=== PATIENT | female | born 1935 | race Caucasian/White ===

== ENCOUNTER 2016-06-27 19:33 | Inpatient (IN) ==
[2016-06-27] MEDS ORDERED: 0.9 % SODIUM CHLORIDE 1,000 ML IV ONE (19:52)
--- NOTE | 2016-06-27 20:01 | Emergency Department Note ---
General Adult HPI - General Chief complaint: Weakness Stated complaint: Weakness Time Seen by Provider: 06/27/16 19:54 Source: patient, EMS Mode of arrival: other Limitations: language barrier - History of Present Illness HPI Narrative: This patient fell during the night when she goes to the bathroom and may return on the floor for 12 hours. EMS came out and she refused transport at that time. However caregivers came later and thought maybe she had a stroke some emesis that she come to the hospital. This time the patient appears neurologically normal. General she may feel little weak but doesn't have a lot of other specific symptoms. - Related Data Home Medications Medication Instructions Recorded Confirmed metFORMIN HCL [Glucophage] 1,000 mg PO WEEKLY 09/08/15 09/08/15 Previous Rx's Medication Instructions Recorded warfarin 3 mg tablet 3 mg PO QOD #15 tab 12/19/14 hydrocodone 7.5 mg-acetaminophen 1 tab PO Q4H PRN #120 tab 04/10/15 325 mg tablet diltiazem ER 120 mg 120 mg PO ONCE #90 cap 04/18/15 capsule,extended release 12 hr glipizide 5 mg tablet 5 mg PO QDAY #90 tab 04/18/15 metformin 1,000 mg tablet 1,000 mg PO BID #180 tab 04/18/15 simvastatin 20 mg tablet 20 mg PO QAM #90 tab 04/18/15 Azithromycin [Zithromax] 250 mg PO DAILY #4 tablet 06/27/16 Allergies Allergy/AdvReac Type Severity Reaction Status Date / Time No Known Drug Allergies Allergy Verified 09/08/15 16:54 Review of Systems Constitutional: Denies: fever, chills Eyes: Denies: eye pain ENT ED: Denies: ear pain Cardiovascular: Denies: chest pain Respiratory: Denies: cough Gastrointestinal: Denies: abdominal pain, nausea Genitourinary: Denies: urgency Musculoskeletal: Denies: back pain Integumentary: Denies: rash Neurological: Denies: headache Past Medical History - Past Medical History Medical history: Reports: arthritis, atrial fibrillation, CVA, diabetes, hyperlipidemia, hypertension, SVT Physical Exam - General Limitations: language barrier General appearance: alert - Head Head exam: atraumatic, normocephalic - Eye Eye exam: Present: normal appearance - ENT ENT exam: mucous membranes dry - Neck Neck exam: Present: normal inspection - Chest Chest inspection: Present: normal inspection - Respiratory Respiratory exam: Present: normal lung sounds bilaterally - Cardiovascular Cardiovascular exam: Present: regular rate, normal rhythm, normal heart sounds - Abdominal Exam Abdominal exam: Present: soft. Absent: distention, tenderness - Neurological Exam Neurological exam: Present: alert - Expanded Neurological Exam Cranial nerves: facial palsy (VII): Normal Motor strength - LUE: 5/5 Motor strength - RUE: 5/5 Motor strength - LLE: 5/5 Motor strength - RLE: 5/5 - Psychiatric Psychiatric exam: Present: normal affect - Skin Skin exam: Present: warm, dry Course Course Narrative: Patient was hydrated and drank liquid orally and felt reasonably well thought she could go home. We did give her oral Zithromax. Vital Signs Temperature 100.1 F H 06/27/16 19:33 Pulse Rate 94 H 06/27/16 19:33 Respiratory Rate 18 06/27/16 19:33 Blood Pressure 158/131 06/27/16 19:33 Pulse Oximetry (%) 93 06/27/16 19:33 Temperature 100.1 F H 06/27/16 19:33 Pulse Rate 96 H 06/27/16 22:08 Respiratory Rate 18 06/27/16 19:33 Blood Pressure 170/82 06/27/16 22:08 Pulse Oximetry (%) 95 06/27/16 22:08 Medical Decision Making - Lab Data Lab results reviewed: Yes I reviewed the patient's lab results. Result diagrams: 06/27/16 19:58 06/27/16 19:58 Lab Results 06/27/16 06/27/16 06/27/16 Range/Units 19:55 19:55 19:58 WBC 14.4 H (4.5-11.0) K/mcL RBC 5.47 H (4.00-5.20) M/mcL Hgb 15.9 H (12.0-15.0) g/dL Hct 49.2 H (36.0-48.0) % MCV 89.9 (80.0-100.0) fL MCH 29.0 (26.0-34.0) pg MCHC 32.3 (31.0-36.0) g/dL RDW 14.9 H (11.5-14.5) % Plt Count 259 (140-440) K/mcL MPV 8.8 (7.4-10.4) fL Gran % 85.5 H (38.0-78.0) % Lymph % (Auto) 8.4 L (15.5-49.0) % [place] % (Auto) 5.9 (1.0-9.0) % Eos % (Auto) 0 (0.0-7.0) % Baso % (Auto) 0.2 (0.0-2.0) % Gran # 12.3 H (1.8-8.0) K/mcL Lymph # 1.2 L (1.5-4.8) K/mcL [place] # 0.9 (0.1-0.9) K/mcL Eos # 0 (0.0-0.7) K/mcL Baso # 0 (0.0-0.3) K/mcL Sodium (133-145) mmol/L Potassium (3.3-5.1) mmol/L Chloride (96-108) mmol/L Carbon Dioxide (22-30) mmol/L Anion Gap (8-16) BUN (8-23) mg/dl Creatinine (0.6-1.1) mg/dl GFR Calculation Glucose (70-105) mg/dL Calcium (8.6-10.4) mg/dl Total Bilirubin (0.0-1.0) mg/dL AST (0-37) U/l ALT (0-40) U/l Alkaline Phosphatase (39-117) U/L Total Creatine Kinase 2944 H (24-170) IU/L Troponin T 0.03 (0-0.03) ng/ml Total Protein (5.9-8.4) gm/dL Albumin (3.2-5.2) gm/dL Globulin (2.2-3.7) gm/dL Albumin/Globulin Ratio (1.0-2.3) Urine Color Urine Appearance Urine pH (5.0-9.0) Ur Specific [place] (1.000-1.035) Urine Protein (NEG) mg/dL Urine Glucose (UA) (NEG) mg/dL Urine Ketones (NEG) mg/dL Urine Occult Blood (<0.03) mg/dL Urine Nitrate (NEG) Urine Bilirubin (NEG) mg/dL Urine Urobilinogen (NEG) mg/dL Ur Leukocyte Esterase (NEG) /uL Urine RBC (0-1) /hpf Urine WBC (0-4) /hpf Ur Squamous Epith Cells (0-4) /hpf Ur Transition Epith Cell (0-2) /hpf Urine Bacteria (0) /hpf Hyaline Casts (0-2) /lpf Urine Mucus (0) /hpf Ur Culture Indicated? 06/27/16 06/27/16 Range/Units 19:58 21:38 WBC (4.5-11.0) K/mcL RBC (4.00-5.20) M/mcL Hgb (12.0-15.0) g/dL Hct (36.0-48.0) % MCV (80.0-100.0) fL MCH (26.0-34.0) pg MCHC (31.0-36.0) g/dL RDW (11.5-14.5) % Plt Count (140-440) K/mcL MPV (7.4-10.4) fL Gran % (38.0-78.0) % Lymph % (Auto) (15.5-49.0) % [place] % (Auto) (1.0-9.0) % Eos % (Auto) (0.0-7.0) % Baso % (Auto) (0.0-2.0) % Gran # (1.8-8.0) K/mcL Lymph # (1.5-4.8) K/mcL [place] # (0.1-0.9) K/mcL Eos # (0.0-0.7) K/mcL Baso # (0.0-0.3) K/mcL Sodium 140 (133-145) mmol/L Potassium 3.8 (3.3-5.1) mmol/L Chloride 100 (96-108) mmol/L Carbon Dioxide 21 L (22-30) mmol/L Anion Gap 19.0 H (8-16) BUN 24 H (8-23) mg/dl Creatinine 1.3 H (0.6-1.1) mg/dl GFR Calculation 38 Glucose 186 H (70-105) mg/dL Calcium 9.3 (8.6-10.4) mg/dl Total Bilirubin 0.5 (0.0-1.0) mg/dL AST 67 H (0-37) U/l ALT 30 (0-40) U/l Alkaline Phosphatase 101 (39-117) U/L Total Creatine Kinase (24-170) IU/L Troponin T (0-0.03) ng/ml Total Protein 7.2 (5.9-8.4) gm/dL Albumin 3.9 (3.2-5.2) gm/dL Globulin 3.3 (2.2-3.7) gm/dL Albumin/Globulin Ratio 1.2 (1.0-2.3) Urine Color Yellow Urine Appearance Hazy Urine pH 5.0 (5.0-9.0) Ur Specific [place] 1.018 (1.000-1.035) Urine Protein 100 A (NEG) mg/dL Urine Glucose (UA) >=500 A (NEG) mg/dL Urine Ketones 5/tr A (NEG) mg/dL Urine Occult Blood 0.2 A (<0.03) mg/dL Urine Nitrate Neg (NEG) Urine Bilirubin Neg (NEG) mg/dL Urine Urobilinogen Neg (NEG) mg/dL Ur Leukocyte Esterase Neg (NEG) /uL Urine RBC 1 (0-1) /hpf Urine WBC 1 (0-4) /hpf Ur Squamous Epith Cells 0 (0-4) /hpf Ur Transition Epith Cell < 1 (0-2) /hpf Urine Bacteria 0 (0) /hpf Hyaline Casts 1 (0-2) /lpf Urine Mucus Few (0) /hpf Ur Culture Indicated? No - Radiology Data Radiology results reviewed: Yes I reviewed the patient's radiology results. ( chest x-ray was borderline for any infiltrates. CT scan showed no sign of acute stroke.) Disposition Clinical Impression: Dehydration, Bronchitis Disposition: Home, Self-Care Condition: Good Instructions: Acute Bronchitis (ED), Dehydration (ED) Prescriptions: Azithromycin [Zithromax] 250 mg PO DAILY #4 tablet Referrals: Nelson Coyle PA-C [Primary Care Provider] - Time of Disposition: 22:46
[2016-06-27 20:34] LABS: Basophils # (Auto) 0 K/mcL (0.0-0.3); Basophils % (Auto) 0.2 % (0.0-2.0); Eosinophils # (Auto) 0 K/mcL (0.0-0.7); Eosinophils % (Auto) 0 % (0.0-7.0); Granulocytes % (Auto) 85.5 % (38.0-78.0); Lymphocytes # (Auto) 1.2 K/mcL (1.5-4.8); Lymphocytes % (Auto) 8.4 % (15.5-49.0); Mean Cell Volume 89.9 fL (80.0-100.0); Mean Corpuscular HGB Conc 32.3 g/dL (31.0-36.0); Monocytes # (Auto) 0.9 K/mcL (0.1-0.9); Monocytes % (Auto) 5.9 % (1.0-9.0); Platelet Count 259 K/mcL (140-440); RBC 5.47 M/mcL (4.00-5.20); Red Cell Distribution Width 14.9 % (11.5-14.5)
[2016-06-27 20:54] LABS: ALT/SGPT 30 U/l (0-40); Albumin 3.9 gm/dL (3.2-5.2); Albumin/Globulin Ratio 1.2 (1.0-2.3); Alkaline Phosphatase 101 U/L (39-117); Blood Urea Nitrogen 24 mg/dl (8-23)
[2016-06-27 22:10] LABS: Appearance,Urine HAZY; Bacteria,Urine 0 /hpf (0); Bilirubin,Urine NEG (NEG); Color,Urine YELLOW; Glucose,Urine (UA) >=500 mg/dL (NEG); Leukocyte Esterase,Urine NEG /uL (NEG); Mucus,Urine FEW /hpf (0); Nitrate,Urine NEG (NEG); Protein,Urine 100 mg/dL (NEG); Specific Gravity,Urine 1.018 (1.000-1.035); Urine Blood 0.2 mg/dL (<0.03); Urine Hyaline Cast 1 /lpf (0-2); Urine RBC 1 /hpf (0-1); Urine Squamous Epithelial Cell 0 /hpf (0-4); Urine Transitional Epi Cells < 1 /hpf (0-2); Urine WBC 1 /hpf (0-4); Urobilinogen,Urine NEG (NEG)
[2016-06-27] MEDS ORDERED: AZITHROMYCIN 250 MG TABLET PO ONE (22:43)
[2016-06-28] MEDS ORDERED: 0.9 % SODIUM CHLORIDE 1,000 ML IV ONE (09:02)
--- NOTE | 2016-06-28 09:21 | Emergency Department Note ---
General Adult HPI - General Chief complaint: Weakness Stated complaint: Weakness Time Seen by Provider: 06/27/16 19:54 Source: patient, EMS Mode of arrival: other Limitations: language barrier - Related Data Home Medications Medication Instructions Recorded Confirmed metFORMIN HCL [Glucophage] 1,000 mg PO WEEKLY 09/08/15 09/08/15 Previous Rx's Medication Instructions Recorded warfarin 3 mg tablet 3 mg PO QOD #15 tab 12/19/14 hydrocodone 7.5 mg-acetaminophen 1 tab PO Q4H PRN #120 tab 04/10/15 325 mg tablet diltiazem ER 120 mg 120 mg PO ONCE #90 cap 04/18/15 capsule,extended release 12 hr glipizide 5 mg tablet 5 mg PO QDAY #90 tab 04/18/15 metformin 1,000 mg tablet 1,000 mg PO BID #180 tab 04/18/15 simvastatin 20 mg tablet 20 mg PO QAM #90 tab 04/18/15 Azithromycin [Zithromax] 250 mg PO DAILY #4 tablet 06/27/16 Allergies Allergy/AdvReac Type Severity Reaction Status Date / Time No Known Drug Allergies Allergy Verified 09/08/15 16:54 Review of Systems Constitutional: Denies: fever, chills Eyes: Denies: eye pain ENT ED: Denies: ear pain Cardiovascular: Denies: chest pain Respiratory: Denies: cough Gastrointestinal: Denies: abdominal pain, nausea Genitourinary: Denies: urgency Musculoskeletal: Denies: back pain Integumentary: Denies: rash Neurological: Denies: headache Past Medical History - Past Medical History Medical history: Reports: arthritis, atrial fibrillation, CVA, diabetes, hyperlipidemia, hypertension, SVT Physical Exam - General Limitations: language barrier General appearance: alert Course Vital Signs Temperature 100.1 F H 06/27/16 19:33 Pulse Rate 94 H 06/27/16 19:33 Respiratory Rate 18 06/27/16 19:33 Blood Pressure 158/131 06/27/16 19:33 Pulse Oximetry (%) 93 06/27/16 19:33 Temperature 98.6 F 06/28/16 08:49 Pulse Rate 81 06/28/16 08:16 Respiratory Rate 16 06/28/16 08:16 Blood Pressure 156/78 06/28/16 08:16 Pulse Oximetry (%) 93 06/28/16 08:16 Medical Decision Making - MDM Narrative Medical decision making narrative: It was felt a discharge that this patient is probably unsafe to go home. She fell several times yesterday and her CPK was quite high in the 2000 range. We' re going to continue to hydrate her recheck her labs and have social service to evaluation. - Lab Data Result diagrams: 06/27/16 19:58 06/27/16 19:58 Lab Results 06/27/16 06/27/16 06/27/16 Range/Units 19:55 19:55 19:58 WBC 14.4 H (4.5-11.0) K/mcL RBC 5.47 H (4.00-5.20) M/mcL Hgb 15.9 H (12.0-15.0) g/dL Hct 49.2 H (36.0-48.0) % MCV 89.9 (80.0-100.0) fL MCH 29.0 (26.0-34.0) pg MCHC 32.3 (31.0-36.0) g/dL RDW 14.9 H (11.5-14.5) % Plt Count 259 (140-440) K/mcL MPV 8.8 (7.4-10.4) fL Gran % 85.5 H (38.0-78.0) % Lymph % (Auto) 8.4 L (15.5-49.0) % [place] % (Auto) 5.9 (1.0-9.0) % Eos % (Auto) 0 (0.0-7.0) % Baso % (Auto) 0.2 (0.0-2.0) % Gran # 12.3 H (1.8-8.0) K/mcL Lymph # 1.2 L (1.5-4.8) K/mcL [place] # 0.9 (0.1-0.9) K/mcL Eos # 0 (0.0-0.7) K/mcL Baso # 0 (0.0-0.3) K/mcL Sodium (133-145) mmol/L Potassium (3.3-5.1) mmol/L Chloride (96-108) mmol/L Carbon Dioxide (22-30) mmol/L Anion Gap (8-16) BUN (8-23) mg/dl Creatinine (0.6-1.1) mg/dl GFR Calculation Glucose (70-105) mg/dL Calcium (8.6-10.4) mg/dl Total Bilirubin (0.0-1.0) mg/dL AST (0-37) U/l ALT (0-40) U/l Alkaline Phosphatase (39-117) U/L Total Creatine Kinase 2944 H (24-170) IU/L Troponin T 0.03 (0-0.03) ng/ml Total Protein (5.9-8.4) gm/dL Albumin (3.2-5.2) gm/dL Globulin (2.2-3.7) gm/dL Albumin/Globulin Ratio (1.0-2.3) Urine Color Urine Appearance Urine pH (5.0-9.0) Ur Specific [place] (1.000-1.035) Urine Protein (NEG) mg/dL Urine Glucose (UA) (NEG) mg/dL Urine Ketones (NEG) mg/dL Urine Occult Blood (<0.03) mg/dL Urine Nitrate (NEG) Urine Bilirubin (NEG) mg/dL Urine Urobilinogen (NEG) mg/dL Ur Leukocyte Esterase (NEG) /uL Urine RBC (0-1) /hpf Urine WBC (0-4) /hpf Ur Squamous Epith Cells (0-4) /hpf Ur Transition Epith Cell (0-2) /hpf Urine Bacteria (0) /hpf Hyaline Casts (0-2) /lpf Urine Mucus (0) /hpf Ur Culture Indicated? 06/27/16 06/27/16 Range/Units 19:58 21:38 WBC (4.5-11.0) K/mcL RBC (4.00-5.20) M/mcL Hgb (12.0-15.0) g/dL Hct (36.0-48.0) % MCV (80.0-100.0) fL MCH (26.0-34.0) pg MCHC (31.0-36.0) g/dL RDW (11.5-14.5) % Plt Count (140-440) K/mcL MPV (7.4-10.4) fL Gran % (38.0-78.0) % Lymph % (Auto) (15.5-49.0) % [place] % (Auto) (1.0-9.0) % Eos % (Auto) (0.0-7.0) % Baso % (Auto) (0.0-2.0) % Gran # (1.8-8.0) K/mcL Lymph # (1.5-4.8) K/mcL [place] # (0.1-0.9) K/mcL Eos # (0.0-0.7) K/mcL Baso # (0.0-0.3) K/mcL Sodium 140 (133-145) mmol/L Potassium 3.8 (3.3-5.1) mmol/L Chloride 100 (96-108) mmol/L Carbon Dioxide 21 L (22-30) mmol/L Anion Gap 19.0 H (8-16) BUN 24 H (8-23) mg/dl Creatinine 1.3 H (0.6-1.1) mg/dl GFR Calculation 38 Glucose 186 H (70-105) mg/dL Calcium 9.3 (8.6-10.4) mg/dl Total Bilirubin 0.5 (0.0-1.0) mg/dL AST 67 H (0-37) U/l ALT 30 (0-40) U/l Alkaline Phosphatase 101 (39-117) U/L Total Creatine Kinase (24-170) IU/L Troponin T (0-0.03) ng/ml Total Protein 7.2 (5.9-8.4) gm/dL Albumin 3.9 (3.2-5.2) gm/dL Globulin 3.3 (2.2-3.7) gm/dL Albumin/Globulin Ratio 1.2 (1.0-2.3) Urine Color Yellow Urine Appearance Hazy Urine pH 5.0 (5.0-9.0) Ur Specific [place] 1.018 (1.000-1.035) Urine Protein 100 A (NEG) mg/dL Urine Glucose (UA) >=500 A (NEG) mg/dL Urine Ketones 5/tr A (NEG) mg/dL Urine Occult Blood 0.2 A (<0.03) mg/dL Urine Nitrate Neg (NEG) Urine Bilirubin Neg (NEG) mg/dL Urine Urobilinogen Neg (NEG) mg/dL Ur Leukocyte Esterase Neg (NEG) /uL Urine RBC 1 (0-1) /hpf Urine WBC 1 (0-4) /hpf Ur Squamous Epith Cells 0 (0-4) /hpf Ur Transition Epith Cell < 1 (0-2) /hpf Urine Bacteria 0 (0) /hpf Hyaline Casts 1 (0-2) /lpf Urine Mucus Few (0) /hpf Ur Culture Indicated? No Disposition Clinical Impression: Dehydration, Bronchitis Disposition: Home, Self-Care Condition: Good Instructions: Dehydration (ED), Acute Bronchitis (ED) Prescriptions: Azithromycin [Zithromax] 250 mg PO DAILY #4 tablet Referrals: Nelson Coyle PA-C [Primary Care Provider] -
--- NOTE | 2016-06-28 09:47 | XRay Report ---
CLINICAL INFORMATION: History of chronic bronchitis. Shortness of breath COMPARISON: 05/24/2015 plain films FINDINGS: Mild cardiomegaly is unchanged. Mediastinum and pulmonary vessels are normal. Chronic bronchitis changes are again noted. There is minor scarring in the left base - there are no new pulmonary abnormalities and no effusions. Mild old compression fractures the mid and lower thoracic spine are stable. IMPRESSION: Mild cardiomegaly, chronic bronchitis changes and scarring the left base - all stable . No acute disease Interpreted and Authenticated by: Zev Joy 06/28/16
--- NOTE | 2016-06-28 09:58 | Emergency Department Note ---
Weakness HPI - General Chief complaint: Weakness Stated complaint: Weakness Time Seen by Provider: 06/27/16 19:54 Source: patient, EMS Mode of arrival: other Limitations: language barrier - Related Data Home Medications Medication Instructions Recorded Confirmed metFORMIN HCL [Glucophage] 1,000 mg PO WEEKLY 09/08/15 09/08/15 Previous Rx's Medication Instructions Recorded warfarin 3 mg tablet 3 mg PO QOD #15 tab 12/19/14 hydrocodone 7.5 mg-acetaminophen 1 tab PO Q4H PRN #120 tab 04/10/15 325 mg tablet diltiazem ER 120 mg 120 mg PO ONCE #90 cap 04/18/15 capsule,extended release 12 hr glipizide 5 mg tablet 5 mg PO QDAY #90 tab 04/18/15 metformin 1,000 mg tablet 1,000 mg PO BID #180 tab 04/18/15 simvastatin 20 mg tablet 20 mg PO QAM #90 tab 04/18/15 Azithromycin [Zithromax] 250 mg PO DAILY #4 tablet 06/27/16 Allergies Allergy/AdvReac Type Severity Reaction Status Date / Time No Known Drug Allergies Allergy Verified 09/08/15 16:54 Review of Systems Constitutional: Denies: fever, chills Eyes: Denies: eye pain ENT ED: Denies: ear pain Cardiovascular: Denies: chest pain Respiratory: Denies: cough Gastrointestinal: Denies: abdominal pain, nausea Genitourinary: Denies: urgency Musculoskeletal: Denies: back pain Integumentary: Denies: rash Neurological: Denies: headache Past Medical History - Past Medical History Medical history: Reports: arthritis, atrial fibrillation, CVA, diabetes, hyperlipidemia, hypertension, SVT Physical Exam - General Limitations: language barrier General appearance: alert Course Vital Signs Temperature 100.1 F H 06/27/16 19:33 Pulse Rate 94 H 06/27/16 19:33 Respiratory Rate 18 06/27/16 19:33 Blood Pressure 158/131 06/27/16 19:33 Pulse Oximetry (%) 93 06/27/16 19:33 Temperature 98.6 F 06/28/16 08:49 Pulse Rate 88 06/28/16 09:43 Respiratory Rate 16 06/28/16 09:43 Blood Pressure 155/69 06/28/16 09:43 Pulse Oximetry (%) 93 06/28/16 09:43 Weakness - MDM Narrative Medical decision making narrative: Laboratory studies reviewed, discussed with Dr. lang and for further history, please see documentation by Dr. lang. Final diagnosis is #1. Dehydration. # 2. Cellulitis, right arm. #3. Impending rhabdo. #4. Generalized weakness, unable to stand without assistance. Likely secondary to dehydration and infection. Discussed with Dr. Campbell and she will be admitted for further hydration and treatment. - Lab Data Result diagrams: 06/27/16 19:58 06/27/16 19:58 Lab Results 06/27/16 06/27/16 06/27/16 Range/Units 19:55 19:55 19:58 WBC 14.4 H (4.5-11.0) K/mcL RBC 5.47 H (4.00-5.20) M/mcL Hgb 15.9 H (12.0-15.0) g/dL Hct 49.2 H (36.0-48.0) % MCV 89.9 (80.0-100.0) fL MCH 29.0 (26.0-34.0) pg MCHC 32.3 (31.0-36.0) g/dL RDW 14.9 H (11.5-14.5) % Plt Count 259 (140-440) K/mcL MPV 8.8 (7.4-10.4) fL Gran % 85.5 H (38.0-78.0) % Lymph % (Auto) 8.4 L (15.5-49.0) % [place] % (Auto) 5.9 (1.0-9.0) % Eos % (Auto) 0 (0.0-7.0) % Baso % (Auto) 0.2 (0.0-2.0) % Gran # 12.3 H (1.8-8.0) K/mcL Lymph # 1.2 L (1.5-4.8) K/mcL [place] # 0.9 (0.1-0.9) K/mcL Eos # 0 (0.0-0.7) K/mcL Baso # 0 (0.0-0.3) K/mcL Sodium (133-145) mmol/L Potassium (3.3-5.1) mmol/L Chloride (96-108) mmol/L Carbon Dioxide (22-30) mmol/L Anion Gap (8-16) BUN (8-23) mg/dl Creatinine (0.6-1.1) mg/dl GFR Calculation Glucose (70-105) mg/dL Calcium (8.6-10.4) mg/dl Total Bilirubin (0.0-1.0) mg/dL AST (0-37) U/l ALT (0-40) U/l Alkaline Phosphatase (39-117) U/L Total Creatine Kinase 2944 H (24-170) IU/L Troponin T 0.03 (0-0.03) ng/ml Total Protein (5.9-8.4) gm/dL Albumin (3.2-5.2) gm/dL Globulin (2.2-3.7) gm/dL Albumin/Globulin Ratio (1.0-2.3) Urine Color Urine Appearance Urine pH (5.0-9.0) Ur Specific [place] (1.000-1.035) Urine Protein (NEG) mg/dL Urine Glucose (UA) (NEG) mg/dL Urine Ketones (NEG) mg/dL Urine Occult Blood (<0.03) mg/dL Urine Nitrate (NEG) Urine Bilirubin (NEG) mg/dL Urine Urobilinogen (NEG) mg/dL Ur Leukocyte Esterase (NEG) /uL Urine RBC (0-1) /hpf Urine WBC (0-4) /hpf Ur Squamous Epith Cells (0-4) /hpf Ur Transition Epith Cell (0-2) /hpf Urine Bacteria (0) /hpf Hyaline Casts (0-2) /lpf Urine Mucus (0) /hpf Ur Culture Indicated? 06/27/16 06/27/16 Range/Units 19:58 21:38 WBC (4.5-11.0) K/mcL RBC (4.00-5.20) M/mcL Hgb (12.0-15.0) g/dL Hct (36.0-48.0) % MCV (80.0-100.0) fL MCH (26.0-34.0) pg MCHC (31.0-36.0) g/dL RDW (11.5-14.5) % Plt Count (140-440) K/mcL MPV (7.4-10.4) fL Gran % (38.0-78.0) % Lymph % (Auto) (15.5-49.0) % [place] % (Auto) (1.0-9.0) % Eos % (Auto) (0.0-7.0) % Baso % (Auto) (0.0-2.0) % Gran # (1.8-8.0) K/mcL Lymph # (1.5-4.8) K/mcL [place] # (0.1-0.9) K/mcL Eos # (0.0-0.7) K/mcL Baso # (0.0-0.3) K/mcL Sodium 140 (133-145) mmol/L Potassium 3.8 (3.3-5.1) mmol/L Chloride 100 (96-108) mmol/L Carbon Dioxide 21 L (22-30) mmol/L Anion Gap 19.0 H (8-16) BUN 24 H (8-23) mg/dl Creatinine 1.3 H (0.6-1.1) mg/dl GFR Calculation 38 Glucose 186 H (70-105) mg/dL Calcium 9.3 (8.6-10.4) mg/dl Total Bilirubin 0.5 (0.0-1.0) mg/dL AST 67 H (0-37) U/l ALT 30 (0-40) U/l Alkaline Phosphatase 101 (39-117) U/L Total Creatine Kinase (24-170) IU/L Troponin T (0-0.03) ng/ml Total Protein 7.2 (5.9-8.4) gm/dL Albumin 3.9 (3.2-5.2) gm/dL Globulin 3.3 (2.2-3.7) gm/dL Albumin/Globulin Ratio 1.2 (1.0-2.3) Urine Color Yellow Urine Appearance Hazy Urine pH 5.0 (5.0-9.0) Ur Specific [place] 1.018 (1.000-1.035) Urine Protein 100 A (NEG) mg/dL Urine Glucose (UA) >=500 A (NEG) mg/dL Urine Ketones 5/tr A (NEG) mg/dL Urine Occult Blood 0.2 A (<0.03) mg/dL Urine Nitrate Neg (NEG) Urine Bilirubin Neg (NEG) mg/dL Urine Urobilinogen Neg (NEG) mg/dL Ur Leukocyte Esterase Neg (NEG) /uL Urine RBC 1 (0-1) /hpf Urine WBC 1 (0-4) /hpf Ur Squamous Epith Cells 0 (0-4) /hpf Ur Transition Epith Cell < 1 (0-2) /hpf Urine Bacteria 0 (0) /hpf Hyaline Casts 1 (0-2) /lpf Urine Mucus Few (0) /hpf Ur Culture Indicated? No Disposition Clinical Impression: Dehydration, Bronchitis, Rhabdomyolysis Disposition: Xfer As Inpt ([facility]) Condition: Good Instructions: Dehydration (ED), Acute Bronchitis (ED) Prescriptions: Azithromycin [Zithromax] 250 mg PO DAILY #4 tablet Referrals: Nelson Coyle PA-C [Primary Care Provider] -
[2016-06-28 10:21] LABS: ALT/SGPT 26 U/l (0-40); Albumin 3.3 gm/dL (3.2-5.2); Albumin/Globulin Ratio 1.3 (1.0-2.3); Alkaline Phosphatase 79 U/L (39-117); Blood Urea Nitrogen 19 mg/dl (8-23); Creatine Kinase 1914 IU/L (24-170); Creatine Kinase MB 14.6 ng/ml (0-2.9); proBNP 832.4 pg/ml (0-450)
--- NOTE | 2016-06-28 10:28 | Cat Scan Report ---
CLINICAL INFORMATION: TIA symptoms with extremity weakness. Also history of trauma COMPARISON: 03/11/[address] without contrast. TECHNIQUE: 2.5 mm helical slices were obtained in the skull base to vertex. Following reconstruction, axial reformatted images were reviewed at bone and parenchymal windows. FINDINGS: The ventricles, sulci, fissures, and cisterns are symmetrically enlarged compatible with moderate atrophy resting considerably from the remote study. There is no subdural hemorrhage or other extra-axial fluid collection. A 9 mm dense calcification along the posterior falx is unchanged from the remote study. It may represent a small benign meningioma - this should be clinically inconsequential in this patient. Marked chronic ischemic changes in the deep cerebral white matter have progressed from the previous study. A 10 mm remote lacunar infarct in the right thalamus and internal capsule is again noted. There is a 3 cm remote infarct in the right cerebellum extending into the right inferior cerebellar peduncle - not seen on the previous study. A few remote punctate lacunar infarcts in basal ganglia are unchanged. There is no intracerebral hemorrhage, mass effect edema or other acute finding. Small scalp hematoma over the right parietal calvaria noted - no underlying fracture. The bone windows show no osseous abnormality IMPRESSION: 1. No intracerebral hemorrhage or other acute finding 2. Moderate atrophy and extensive chronic ischemic changes in the cerebral white matter which have progressed considerably over the past 12 years 3. 3 cm remote infarct in the inferior right cerebellum, 10 mm remote infarct in the right thalamus and scattered punctate remote lacunar infarcts in the basal ganglia Interpreted and Authenticated by: Zev Joy 06/28/16
--- NOTE | 2016-06-28 12:20 | Internal Med History&Physical ---
Medical - H&P: HPI Patient information: Note initiated : 06/28/16 at 12:15 pm Service Date, if different from initiated Date: [] Patient: Iris Singh a 81 y/o F admitted on for Weakness. 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 There is history suggestive of having weakness and stroke like symptoms, but the pateint is not sure. On my eval the patient notes she is back to her baseline mental status. I am not sure what her baseline is therfore cannot acertain if she had a CVA or TIA. The patient noted that she did not feel like coming in to the hospital and therefor she declined the first time. Later on she fell down and hit her knees, elbows and her intensive care unit nurse called EMS and she ended up in the ER. It seems she was out of the window for any intervention. The patients labs show elevated wbc, elevated CK, ER physician notes right arm cellutlitis, and the patient was admitted to the hospital for further management. 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 no acute infarcts, but its likely that she may have had a TIA like episode. CXR is negative for acute process. patient admits to pain in the right elbow. - Constitutional Constitutional: Present: fatigue, frequent falls, weakness. Absent: fever(s), headache(s) - EENT Eyes: Absent: blurry vision, change in vision Nose, mouth and throat: Absent: abnormal hearing, dysphagia - Cardiovascular Cardiovascular: Present: pedal edema. Absent: chest pain, chest pain at rest, palpatations - Respiratory Respiratory: Absent: dyspnea, dyspnea on exertion - Gastrointestinal Gastrointestinal: Absent: abdominal pain, nausea, vomiting - Genitourinary Genitourinary: Absent: hematuria, urinary frequency, urinary hesitancy - Musculoskeletal Musculoskeletal: Present: arthralgias, back pain - Integumentary Integumentary: Present: skin ulcer, wounds - Neurological Neurological: Absent: syncope, vertigo, weakness - Psychiatric Psychiatric: Present: confusion. Absent: anxiety - Endocrine Endocrine: Absent: polydipsia, polyphagia, polyuria - Allergic/Immunologic Allergic/Immunologic: Absent: uticaria, wheezing Medical - H&P: PMH Medical history: PMH DM, HTN, HLD< CVA on coumadin, h/o SVT Surgical history: No major surgical issue Family history: reviewed and not pertinent Social history: Lkives by self recently non smoker no etoh no recreational drugs. Medical - H&P: Meds Home Medications Medication Instructions Recorded Confirmed Type metFORMIN HCL [Glucophage] 1,000 mg PO WEEKLY 09/08/15 09/08/15 History Allergies Allergy/AdvReac Type Severity Reaction Status Date / Time No Known Drug Allergies Allergy Verified 09/08/15 16:54 Medical - H&P: Exam - Constitutional Vitals: Temp Pulse Resp BP Pulse Ox 98.6 F 95 H 16 159/63 93 06/28/16 08:49 06/28/16 10:59 06/28/16 10:59 06/28/16 10:59 06/28/16 10:59 General appearance: cooperative, no acute distress - Head Head exam: Present: atraumatic, normal inspection - Eye Eye exam: Present: conjunctival injection, PERRL. Absent: periorbital swelling , periorbital tenderness, scleral icterus - ENT ENT exam: Present: mucous membranes moist Additional comments: poor dentition tongue midline uvula midline gag reflex present. - Neck Neck exam: Present: normal inspection - Respiratory Respiratory exam: Present: normal respiratory exam. Absent: accessory muscle use, rhonchi, wheezes - Cardiovascular Cardiovascular exam: Present: normal rate and rhythm, +S1, +S2, systolic murmur (5/6 aortic murmur) - GI/Abdominal GI/Abdominal exam: Present: normal bowel sounds, soft. Absent: rigid, tenderness - Extremities Exam Additional comments: Left upper extremity: nectoric eschar based ulcer 3x3 cms, with surrounding erythema, decub ulcer. Right upper extremity: abrasin on the elbow, eythema, exending to mid forearm, on the lateral aspect, also involves the lower 1/3 of the arm. - Neurological Exam Neurological exam: Present: alert, CN II-XII intact, oriented X3. Absent: motor sensory deficit Additional comments: the patient upper extremity is 4/5 serge lowe extremity 3/5 serge sensations grossly serge equal able to speak, and understand questions during history taking. - Psychiatric Psychiatric exam: Present: depressed - Skin Skin exam: Absent: rash, urticaria Medical - H&P: Reslt - Labs CBC & Chem 7: 06/27/16 19:58 06/28/16 09:08 Labs: Short CBC 06/27/16 Range/Units 19:58 WBC 14.4 H (4.5-11.0) K/mcL Hgb 15.9 H (12.0-15.0) g/dL Hct 49.2 H (36.0-48.0) % Plt Count 259 (140-440) K/mcL BMP 06/27/16 06/28/16 19:58 09:08 Sodium 140 142 Potassium 3.8 3.8 Chloride 100 106 Carbon Dioxide 21 L 21 L BUN 24 H 19 Creatinine 1.3 H 1.0 Glucose 186 H 148 H Calcium 9.3 7.8 L Cardiac Enzymes 06/27/16 06/27/16 06/28/16 Range/Units 19:55 19:55 09:08 Total Creatine Kinase 2944 H 1914 H (24-170) IU/L CK-MB (CK-2) 14.6 H (0-2.9) ng/ml Troponin T 0.03 (0-0.03) ng/ml Liver Function 06/27/16 06/28/16 Range/Units 19:58 09:08 Total Bilirubin 0.5 0.8 (0.0-1.0) mg/dL AST 67 H 54 H (0-37) U/l ALT 30 26 (0-40) U/l Alkaline Phosphatase 101 79 (39-117) U/L Albumin 3.9 3.3 (3.2-5.2) gm/dL Urine 06/27/16 Range/Units 21:38 Urine Color Yellow Urine Appearance Hazy Urine pH 5.0 (5.0-9.0) Ur Specific [place] 1.018 (1.000-1.035) Urine Protein 100 A (NEG) mg/dL Urine Glucose (UA) >=500 A (NEG) mg/dL Medical - H&P: A/P (1) TIA (transient ischemic attack) Current visit: Yes Status: Acute (2) Diabetes mellitus Current visit: Yes Status: Acute (3) Cellulitis Current visit: Yes Status: Acute (4) Dehydration Current visit: Yes Status: Acute (5) Rhabdomyolysis Current visit: Yes Status: Acute (6) SVT (supraventricular tachycardia) Current visit: No Status: Acute - Narrative A/P Narrative: This is a pleasant 81 yr female who lives by her self, no family in town as per the patient She fell down and recollects falling down, 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 IV fluids for rhabdomyolysis OT/ PT eval patient is not keen on going to snf at this time, but will reassess her DVT hep sq, check INR stat, if INR therapeutic, will stop heparin Diet diabetic diet The patient is listed as Leonides's patient in the chart, but there are no office notes from him, the patient has not yet seen him, she notes she has seen Dr Kelley, who is managing her coumadin for her.
[2016-06-28] MEDS ORDERED: ACETAMINOPHEN 325 MG TABLET PO PRN (13:25)
[2016-06-28] MEDS ORDERED: FLEETS ADULT ENEMA PR PRN (13:25)
[2016-06-28] MEDS ORDERED: NALOXONE HCL 0.4 MG/ML VIAL IV PRN (13:25)
[2016-06-28] MEDS ORDERED: BISACODYL 10 MG SUPP.RECT PR PRN (13:25)
[2016-06-28] MEDS ORDERED: DEXTROSE 50% 50 ML VIAL IV PRN (13:25)
[2016-06-28] MEDS ORDERED: ONDANSETRON 4 MG/2 ML VIAL IV PRN (13:25)
[2016-06-28] MEDS: 0.9 % SODIUM CHLORIDE 1,000 ML IV SCH (14:06)
[2016-06-28] MEDS: PIPERACILLIN SODIUM/TAZOBACTAM 3.375 GM in DEXTROSE 5% IN WATER 50 ML IV SCH ×3 (14:06→23:49)
--- NOTE | 2016-06-28 15:36 | XRay Report ---
CLINICAL INFORMATION: Trauma COMPARISON: None. FINDINGS: Sacroiliac and hip joints are normal in width and alignment, without arthritic change. There is no fracture or focal osseous abnormality. Soft tissues are unremarkable. IMPRESSION: Normal exam. Interpreted and Authenticated by: Zev Joy 06/28/16
[2016-06-28] MEDS ORDERED: HYDROcodone/APAP 5/325MG TABLET PO PRN (16:21)
[2016-06-28] MEDS ORDERED: WARFARIN 3 MG TABLET PO ONE (17:00)
--- NOTE | 2016-06-28 17:07 | Ultrasound Report ---
CLINICAL INFORMATION: TIA COMPARISON: None. TECHNIQUE: Carotid arteries were imaged in sagittal and transverse planes using 5 mHz linear probe: Doppler, color, and 2D. FINDINGS: See worksheet by the technologist for velocities in PACS Please correlate with CTA CT Angiography or MRA MR Angiography if surgery is contemplated. IMPRESSION: Both common, internal and external carotid arteries are widely patent. There is mild calcific and fibrofatty plaque in both carotid bifurcation. Antegrade flow in both vertebral arteries Interpreted and Authenticated by: Zev Joy 06/28/16
[2016-06-28] MEDS: DILTIAZEM 180 MG CAP.XL.24H PO SCH (17:56)
[2016-06-28] MEDS: INSULIN LISPRO 1 UNIT/0.01 ML UNIT SQ SCH ×2 (17:56→21:11)
[2016-06-28] MEDS ORDERED: HEPARIN 5,000 UNIT/ML VIAL SQ SCH (21:00)
[2016-06-28] MEDS ORDERED: SIMVASTATIN 20 MG TABLET PO SCH (21:00)
[2016-06-28] MEDS: SIMVASTATIN 20 MG TABLET PO SCH (21:05)
[2016-06-28] MEDS: FAMOTIDINE/PF 20 MG/2 ML VIAL IV SCH (21:05)
[2016-06-29] MEDS: 0.9 % SODIUM CHLORIDE 1,000 ML IV SCH ×3 (01:39→23:45)
[2016-06-29] MEDS: HYDROcodone/APAP 5/325MG TABLET PO PRN ×2 (04:24→20:37)
[2016-06-29] MEDS: PIPERACILLIN SODIUM/TAZOBACTAM 3.375 GM in DEXTROSE 5% IN WATER 50 ML IV SCH ×3 (05:42→16:49)
[2016-06-29 05:48] LABS: Basophils # (Auto) 0 K/mcL (0.0-0.3); Basophils % (Auto) 0.5 % (0.0-2.0); Eosinophils # (Auto) 0.2 K/mcL (0.0-0.7); Eosinophils % (Auto) 2.3 % (0.0-7.0); Granulocytes % (Auto) 67.1 % (38.0-78.0); Lymphocytes % (Auto) 23.2 % (15.5-49.0); Mean Cell Volume 90.9 fL (80.0-100.0); Mean Corpuscular HGB Conc 32.1 g/dL (31.0-36.0); Mean Corpuscular Hemoglobin 29.2 pg (26.0-34.0); Monocytes # (Auto) 0.6 K/mcL (0.1-0.9); Monocytes % (Auto) 6.9 % (1.0-9.0); Platelet Count 218 K/mcL (140-440); RBC 4.19 M/mcL (4.00-5.20)
[2016-06-29 06:00] LABS: ALT/SGPT 24 U/l (0-40); Albumin 2.9 gm/dL (3.2-5.2); Albumin/Globulin Ratio 1.1 (1.0-2.3); Alkaline Phosphatase 69 U/L (39-117); Bilirubin,Direct < 0.2 mg/dL (0.0-0.3); Blood Urea Nitrogen 20 mg/dl (8-23); Gamma Glutamyl Transpeptidase 21 U/L (5-36); Magnesium 1.8 mg/dL (1.6-2.5); Phosphorous 2.9 mg/dL (2.7-4.5); Uric Acid 4.7 mg/dL (2.5-8.0)
[2016-06-29 06:11] LABS: Estimated Average Glucose(eAG) 200 mg/dL; Hemoglobin A1C 8.6 % HGB (4.0-6.0)
--- NOTE | 2016-06-29 08:39 | Echocardiogram Report ---
ECHOCARDIOGRAM: 2-D and M-mode echocardiography with cardiac Doppler and color flow imaging were performed with a [employer] Aplio MX. INDICATION: TIA and murmur. Overall size of the RA, RV, LV, and aortic root appeared normal. LV wall thickness appeared mildly increased. Systolic performance appeared vigorous. Estimated ejection fraction of 70 percent. The LA appeared mildly enlarged. The aortic root appeared sclerotic. The aortic valve appeared moderately calcified. Valve opening appeared adequate. Maximal instantaneous aortic outflow systolic gradient as obtained from the apex and as calculated by the modified Bernoulli equation was 25 mmHg, usually corresponding to mild aortic stenosis. There was no evidence for aortic regurgitation. The mitral and tricuspid valves appeared unremarkable. Doppler interrogation of LV inflow disclosed prolonged early diastolic deceleration time and \\"a\\" wave dominance indicating delayed LV relaxation. There was no evidence for mitral regurgitation. The pulmonic valve is not visualized. Pulmonary artery acceleration time appeared normal. There was no evidence for pulmonic stenosis or pulmonic regurgitation. There was no evidence for significant tricuspid regurgitation. No intracardiac shunting was appreciated. There was no evidence for pericardial effusion, though there was suggestion of a posterior pericardial thickening. The IVC was of normal diameter and showed normal respiratory variation. A borderline sinus tachycardia, rate 100, was present. CONCLUSION: Aortic root sclerosis. Aortic stenosis, probably mild. Mild concentric LVH with vigorous systolic performance. Mild LA enlargement. Possible posterior pericardiac thickening. (See accompanying M-mode and Doppler reports for quantitation.) ECHOCARDIOGRAPHY M-MODE CALCULATIONS: HT: 5 feet 6 inches WT: 200 BSA: 2.0 NORMALS AORTA: AORTIC ROOT 3.3 2.0-3.7 cm LEFT ATRIUM 3.1 1.9-4.0 cm MITRAL VALVE: EXCURSION 1.8 1.9-2.7 cm EPSS 0 <0.5 cm LT VENTRICLE: LVID (ED) 5.0 3.5-5.7 cm LVID (ES) 3.0 SEPTAL THICKNESS 1.2 0.6-1.1 cm SEPTAL EXCURSION 0.8 0.3-0.8 cm LVPW THICKNESS 1.1 0.6-1.1 cm LVPW EXCURSION 1.1 0.9-1.4 cm MINOR AXIS FS 4.0 25%-40% RT VENTRICLE: RVID (ED) 1.0 0.9-2.6 cm(up to 3cm if LLD) QUALITATIVE DOPPLER FLOW STUDIES MITRAL VALVE -- AORTIC VALVE , probably mild TRICUSPID VALVE -- PULMONIC VALVE -- QUANTITATIVE DOPPLER FLOW STUDIES SAMPLE SITES VELOCITIES PEAK PRESSURE VALVE AREA and/or VALVE WINDOW (PEAK,M/SEC) DROP (GRADIENT) PRESSURE HALF-TIME MV (Diastole) 1.1 (E) 1.45 (A) -- -- MV (Systole) -- -- -- AO (Diastole) -- -- -- AO (Systole) 2.5 25 mmHg -- TV (Systole) 1.0 -- -- PV (Systole) 0.55 -- -- PV (Diastole) -- LWG:ibrahima Job ID: [id number] Doc ID: [id number] Richard Castillo MD
--- NOTE | 2016-06-29 08:44 | XRay Report ---
CLINICAL INFORMATION: Fever and shortness of breath COMPARISON: 06/27/2016 FINDINGS: Mild cardiomegaly is unchanged. Mediastinum is unremarkable. Pulmonary vessels are slightly prominent likely due to suboptimal inspiratory result and/or semirecumbent positioning. There is new mild bibasilar airspace disease likely atelectasis IMPRESSION: Mild basilar airspace disease - likely atelectasis Interpreted and Authenticated by: Zev Joy 06/29/16
[2016-06-29] MEDS ORDERED: VANCOMYCIN PER PHARMACY IV ONE (09:30)
[2016-06-29] MEDS: DILTIAZEM 180 MG CAP.XL.24H PO SCH (09:40)
[2016-06-29] MEDS: INSULIN LISPRO 1 UNIT/0.01 ML UNIT SQ SCH ×4 (09:44→20:02)
[2016-06-29] MEDS: FAMOTIDINE/PF 20 MG/2 ML VIAL IV SCH ×2 (10:28→20:00)
[2016-06-29] MEDS: VANCOMYCIN 1,500 MG in 0.9 % SODIUM CHLORIDE 500 ML IV SCH (11:00)
--- NOTE | 2016-06-29 12:01 | General Surgery Consult Note ---
History of Present Illness Patient information: Note initiated : 06/29/16 at 11:56 am Service Date, if different from initiated Date: [] Patient: Iris Singh 81 y/o F admitted on 06/28/16 for Weakness. Chief Complaint: [] consultation requested by Dr. Campbell, hospitalist physician to evaluate patient for skin lesions of left elbow posterior aspect and left knee anterior aspect., I went through the patient's records and examined her aloing with nursing staff. this is an 81-year-old female. She has generalized weakness and questionable TIA versus another neurological process. she is nonsmoker and nonalcoholic. She lives by herself. she had abnormal lab results and is admitted to intensive care unit for observation and stabilization. Reportedly, it is progressively difficult for the nursing staff to transfer the patient from bed to the chair and vice versa. Consult date: 06/29/16 Reason for consult: other Requesting physician: Radha Campbell History of present illness: Evaluation of skin lesions, LEFT posterior elbow and anterior knee. Medications and Allergies Home Medications Medication Instructions Recorded Confirmed Type Diltiazem HCl [Diltiazem 24Hr Cd] 180 mg PO DAILY 06/28/16 06/28/16 History Ergocalciferol (Vitamin D2) 100,000 unit PO WEEKLY 06/28/16 06/28/16 History [Vitamin D2] HYDROcodone/APAP 5/325MG [[place] 1 tab PO Q4-6HP PRN 06/28/16 06/28/16 History 5/325Mg] Simvastatin [Zocor] 20 mg PO QHS 06/28/16 06/28/16 History Warfarin [Coumadin] 3 mg PO DAILY 06/28/16 06/28/16 History glipiZIDE [Glucotrol] 15 mg PO DAILY 06/28/16 06/28/16 History Allergies Allergy/AdvReac Type Severity Reaction Status Date / Time No Known Drug Allergies Allergy Verified 09/08/15 16:54 Exam Temp Pulse Resp BP Pulse Ox 97.9 F 67 20 168/89 99 06/29/16 11:49 06/29/16 08:00 06/29/16 11:49 06/29/16 11:49 06/29/16 11:49 - General physical appearance well developed, well nourished, no distress, no pain - Eyes PERRL, normal ocular movement - ENT normal pinna, normal nares, normal mucosa, no congestion, other (POOR DENTITION , CARIES) - Head Head exam IM: Present: atraumatic, normal inspection, normocephalic - Neck no masses, no bruits, trachea midline, no lymphadectomy, no venous distension - Cardiovascular Cardiovascular exam IM: Present: normal rate and rhythm - Respiratory normal expansion, normal respiratory effort, clear to auscultation - Abdomen Abdomen: Present: soft, non tender, bowel sounds - Integumentary Present: other (SKIN LESIONS. left ANTERIOR KNEE abrasion skin and sub q level; Left posterior elbow Clean dark black eschar adherent to sub cutaneous tissue. DEMARCATING ) - Neurologic Present: normal coordination, normal sensation, other (NO focal neurological weakness) - Musculoskeletal Present: other (GAIT not tested. Patient seen transferring from bed to chair with assistance. ) - Psychiatric Present: speech is normal (Confused with variable attention span. ) Results - Labs 06/30/16 03:35 06/30/16 03:35 Abnormal lab results 06/29/16 06/29/16 06/29/16 Range/Units 03:51 03:51 03:51 RDW 15.0 H (11.5-14.5) % PT 24.9 H (11.9-14.5) sec INR 2.2 H (0.9-1.1) Chloride 109 H (96-108) mmol/L Carbon Dioxide 20 L (22-30) mmol/L Glucose 127 H (70-105) mg/dL Hemoglobin A1c (4.0-6.0) % HGB Calcium 7.7 L (8.6-10.4) mg/dl AST 38 H (0-37) U/l Lactate Dehydrogenase 294 H (94-250) U/L Total Creatine Kinase (24-170) IU/L Total Protein 5.6 L (5.9-8.4) gm/dL Albumin 2.9 L (3.2-5.2) gm/dL Triglycerides 181 H (<150) mg/dl 06/29/16 06/29/16 Range/Units 03:51 03:52 RDW (11.5-14.5) % PT (11.9-14.5) sec INR (0.9-1.1) Chloride (96-108) mmol/L Carbon Dioxide (22-30) mmol/L Glucose (70-105) mg/dL Hemoglobin A1c 8.6 H (4.0-6.0) % HGB Calcium (8.6-10.4) mg/dl AST (0-37) U/l Lactate Dehydrogenase (94-250) U/L Total Creatine Kinase 1096 H (24-170) IU/L Total Protein (5.9-8.4) gm/dL Albumin (3.2-5.2) gm/dL Triglycerides (<150) mg/dl Diabetes panel 06/29/16 06/29/16 Range/Units 03:51 03:51 Sodium 141 (133-145) mmol/L Potassium 4.0 (3.3-5.1) mmol/L Chloride 109 H (96-108) mmol/L Carbon Dioxide 20 L (22-30) mmol/L BUN 20 (8-23) mg/dl Creatinine 1.1 (0.6-1.1) mg/dl Glucose 127 H (70-105) mg/dL Hemoglobin A1c 8.6 H (4.0-6.0) % HGB Calcium 7.7 L (8.6-10.4) mg/dl AST 38 H (0-37) U/l ALT 24 (0-40) U/l Alkaline Phosphatase 69 (39-117) U/L Total Protein 5.6 L (5.9-8.4) gm/dL Albumin 2.9 L (3.2-5.2) gm/dL Triglycerides 181 H (<150) mg/dl Calcium panel 06/29/16 Range/Units 03:51 Calcium 7.7 L (8.6-10.4) mg/dl Phosphorus 2.9 (2.7-4.5) mg/dL Albumin 2.9 L (3.2-5.2) gm/dL Pituitary panel 06/29/16 Range/Units 03:51 Sodium 141 (133-145) mmol/L Potassium 4.0 (3.3-5.1) mmol/L Chloride 109 H (96-108) mmol/L Carbon Dioxide 20 L (22-30) mmol/L BUN 20 (8-23) mg/dl Creatinine 1.1 (0.6-1.1) mg/dl Glucose 127 H (70-105) mg/dL Calcium 7.7 L (8.6-10.4) mg/dl Adrenal panel 06/29/16 Range/Units 03:51 Sodium 141 (133-145) mmol/L Potassium 4.0 (3.3-5.1) mmol/L Chloride 109 H (96-108) mmol/L Carbon Dioxide 20 L (22-30) mmol/L BUN 20 (8-23) mg/dl Creatinine 1.1 (0.6-1.1) mg/dl Glucose 127 H (70-105) mg/dL Calcium 7.7 L (8.6-10.4) mg/dl Total Bilirubin 0.6 (0.0-1.0) mg/dL AST 38 H (0-37) U/l ALT 24 (0-40) U/l Alkaline Phosphatase 69 (39-117) U/L Total Protein 5.6 L (5.9-8.4) gm/dL Albumin 2.9 L (3.2-5.2) gm/dL All other labs normal. Assessment and Plan (1) Abrasion MONITOR progress. Foam bordered dressing front of left knee. Change bi weekly Status: Acute Priority: Medium (2) Eschar Status: Acute Priority: Medium Comment: Fullthickness dry adherent eschar back of LEFT elbow. FOR conservative management. Clean with salinw, Apply Santyl around borders and cover with bordered Mepitel dressing.
[2016-06-29] MEDS: BACITRACIN TOPICAL OINT 15 GM TUBE TOPICAL SCH (12:21)
[2016-06-29] MEDS: COLLAGENASE TOP OINT TUBE 30GM TOPICAL SCH (12:22)
--- NOTE | 2016-06-29 12:46 | Internal Med Progress Note ---
Medical - PN: Subj Patient information: Note initiated : 06/29/16 at 12:43 pm Service Date, if different from initiated Date: [] Patient: Iris Singh 81 y/o F admitted on 06/28/16 for Weakness. Chief Complaint: [] Interval history: The patietn seen this AM, sitting upright, having breakfast no acute concerns, slept ok the patient is still weak, notes soreness on both elbows and ,knees. The patient labs / vitals reviwed, low grade temp overnght. Patient seems to be at baseline mental status. I discussed with her again need for rehab, and high risk of falls should she go back home. Patient is not keen on going to SNF at this time. Pt is not ready for discharge at this time, as her CK is still > 1000, will continue with IV fluids WOund care to see the patient for decub ulcers. I reviewed her Echo- mild , normal EF, LVH Carotid duplex is negative for significant stenosis. Patient is on coumadin with therapeutic INR. Pertinent ROS: Denies headache, dizziness Denies chest pain, palpitations Denies cough or shortness of breath Denies abdominal pain, nausea or vomiting. - Constitutional Vitals: Vital Signs Temp Pulse Resp BP Pulse Ox 97.9 F 67 20 168/89 99 06/29/16 11:49 06/29/16 08:00 06/29/16 11:49 06/29/16 11:49 06/29/16 11:49 Period Temp Pulse Resp BP Sys/Jhaveri Pulse Ox Last 24 Hr 97.5 F-100.3 F 67-88 18-28 130-175/79-94 96-100 Intake and Output 06/28/16 06/29/16 06/29/16 21:59 05:59 13:59 Intake Total 580 / 580 1050 / 1050 923 / 923 Output Total 525 / 525 550 / 550 Balance 55 / 55 500 / 500 923 / 923 Weight 212 lb 11.2 oz Intake & Output: Intake & Output 06/28/16 06/29/16 06/29/16 21:59 05:59 13:59 Intake Total 580 / 580 1050 / 1050 923 / 923 Output Total 525 / 525 550 / 550 Balance 55 / 55 500 / 500 923 / 923 Weight 212 lb 11.2 oz Intake: IV 100 / 100 1050 / 1050 923 / 923 Sodium Chloride 0.9% 1, 1000 / 1000 873 / 873 000 ml @ 100 mls/hr IV . Q10H GIUSEPPE Rx#:[id number] Dextrose 5% in Water 50 100 / 100 50 / 50 50 / 50 ml @ 100 mls/hr IV Q6 GIUSEPPE with Zosyn 3.375 gm Rx#: [id number] Oral 480 / 480 Output: Urine Catheter Amount 175 / 175 Void Amount 525 / 525 375 / 375 Uretheral (Garcia) 175 / 175 Other: # Bowel Movements 0 Exam: Constitutional; Afebrile, cooperative, alert, not in distress. Eyes- No icterus, Pupils equal, reactive, No periorbital swelling , right eye has some mild erthema. improving. no discharge Ears- Ext ear normal, hearing normal to conversation. Neck- Midline trachea, supple Respiratory system: Air Entry equal on both sides, No crackles or wheezing, no rhonchi. CVS- Rate rhythm regular, S1,S2 heard, no gallop, no rub. aorti systolic murmur Abdomen- Soft nontender abdomen, no organomegaly, no tenderness, no guarding or rigidity, [employer]INGS REPA[employer]ER- AOOx3, moving all extremities, no focal deficit noted. generalized weakness present. Medical - PN: Obj Da - Labs CBC & Chem 7: 06/29/16 03:51 06/29/16 03:51 Labs: Abnormal Lab Results 06/29/16 06/29/16 06/29/16 03:52 03:51 03:51 RDW PT 24.9 H INR 2.2 H Chloride Carbon Dioxide Glucose Hemoglobin A1c 8.6 H Calcium AST Lactate Dehydrogenase Total Creatine Kinase 1096 H Total Protein Albumin Triglycerides 06/29/16 06/29/16 03:51 03:51 RDW 15.0 H PT INR Chloride 109 H Carbon Dioxide 20 L Glucose 127 H Hemoglobin A1c Calcium 7.7 L AST 38 H Lactate Dehydrogenase 294 H Total Creatine Kinase Total Protein 5.6 L Albumin 2.9 L Triglycerides 181 H Meds: Medications Acetaminophen (Tylenol) 650 mg PO Q6HP PRN PRN Reason: PAIN/FEVER > 101 Acetaminophen/Hydrocodone Bitart ([place] 5/325mg) 1 tab PO Q4HP PRN PRN Reason: Pain Last Admin: 06/29/16 04:24 Dose: 1 tab Bacitracin (Bacitracin Topical Oint) 1 dose TOPICAL DAILY [facility] Last Admin: 06/29/16 12:21 Dose: 15 gm Bisacodyl (Dulcolax) 10 mg PO DAILYP PRN PRN Reason: Constipation Bisacodyl (Dulcolax) 10 mg MS Q3DP PRN PRN Reason: Constipation Collagenase (Santyl Top Oint) 1 dose TOPICAL DAILY [facility] Last Admin: 06/29/16 12:22 Dose: 1 gm Dextrose (Dextrose 50%) 0 ml IV UD PRN PRN Reason: Hypoglycemia Diagnostic Test (Pha) (Accu-Chek) 1 each FS ACHS [facility] Last Admin: 06/29/16 11:51 Dose: 1 each Diltiazem HCl (Cardizem Cd) 180 mg PO DAILY [facility] Last Admin: 06/29/16 09:40 Dose: 180 mg Ergocalciferol (Drisdol) 100,000 unit PO We@0900 [facility] Famotidine (Pepcid) 20 mg IV Q12 [facility] Last Admin: 06/29/16 10:28 Dose: 20 mg Sodium Chloride (Sodium Chloride 0.9%) 1,000 mls @ 100 mls/hr IV .Q10H [facility] Last Admin: 06/29/16 10:23 Dose: 100 mls/hr Piperacillin Sod/Tazobactam (Sod 3.375 gm/ Dextrose) 50 mls @ 100 mls/hr IV Q6 [facility] Last Admin: 06/29/16 12:22 Dose: 100 mls/hr Vancomycin HCl 1,500 mg/ (Sodium Chloride) 500 mls @ 333.3 mls/hr IV Q24H [facility] Last Admin: 06/29/16 11:00 Dose: 333.3 mls/hr Insulin Human Lispro (Humalog) 0 unit SQ ACHS [facility] PRN Reason: Protocol Last Admin: 06/29/16 12:21 Dose: 5 unit Naloxone HCl (Narcan) 0.1 mg IV Q2MIN PRN PRN Reason: Opiate Reversal Ondansetron HCl (Zofran) 4 mg IV Q4HP PRN PRN Reason: Nausea And Vomiting Simvastatin (Zocor) 20 mg PO HS [facility] Last Admin: 06/28/16 21:05 Dose: 20 mg Sodium Biphosphate/Sodium Phosphate (Fleets Adult) 1 dose MS Q3DP PRN PRN Reason: Constipation Warfarin Sodium (Coumadin) 3 mg PO DAILY@1400 [facility] Medical - PN: A/P - Time Spent With Patient Total time spent is greater than 50% in coordination of care (as documented) at patient's floor/unit and/or counseling patient: (1) TIA (transient ischemic attack) Status: Acute Current Visit: Yes (2) Diabetes mellitus Status: Acute Current Visit: Yes (3) Cellulitis Status: Acute Current Visit: Yes (4) Dehydration Status: Acute Current Visit: Yes (5) Rhabdomyolysis Status: Acute Current Visit: Yes (6) SVT (supraventricular tachycardia) Status: Acute Current Visit: No - Narrative A/P Narrative: Not sure if patient had TIA or just ell down and was too weak to get up On tele monitoring, CT head neg, echo and carotid duplex neg, no MRI available over the weekend, not sure will add much at this time. Patient rhabdomyolysis is improving, will continue with gentle hydration Renal failure has resolved Cellutlitis treated with vancomycin and zosyn, switch to bactrim,keflex on discharge if continues to improve. Diabetes, Glucose was stable in AM, trending up later, on sliding scale insulin , if worsens will change the scale. DVT on coumadin Diet diabetic Activity- as tolerated WIll need ongoing PT/ OT, Discussed regarding snf placement. Not sure if she will change her mind. Medical - PN: Qual - VTE Deep Vein Thrombosis/Pulmonary Embolism Present on Admission: No
[2016-06-29] MEDS: WARFARIN 3 MG TABLET PO SCH (16:49)
[2016-06-29] MEDS: SIMVASTATIN 20 MG TABLET PO SCH (20:00)
[2016-06-29] MEDS: BISACODYL 5 MG TABLET PO PRN (21:37)
[2016-06-30] MEDS: PIPERACILLIN SODIUM/TAZOBACTAM 3.375 GM in DEXTROSE 5% IN WATER 50 ML IV SCH ×4 (00:01→17:21)
[2016-06-30] MEDS: 0.9 % SODIUM CHLORIDE 1,000 ML IV SCH ×3 (00:51→15:44)
[2016-06-30 05:05] LABS: Basophils # (Auto) 0.1 K/mcL (0.0-0.3); Basophils % (Auto) 0.7 % (0.0-2.0); Eosinophils # (Auto) 0.2 K/mcL (0.0-0.7); Eosinophils % (Auto) 2.3 % (0.0-7.0); Granulocytes % (Auto) 60.7 % (38.0-78.0); Lymphocytes # (Auto) 2.4 K/mcL (1.5-4.8); Lymphocytes % (Auto) 30.3 % (15.5-49.0); Mean Cell Volume 90.7 fL (80.0-100.0); Mean Corpuscular HGB Conc 32.6 g/dL (31.0-36.0); Mean Corpuscular Hemoglobin 29.5 pg (26.0-34.0); Monocytes # (Auto) 0.5 K/mcL (0.1-0.9); Platelet Count 225 K/mcL (140-440); RBC 4.06 M/mcL (4.00-5.20); Red Cell Distribution Width 15.4 % (11.5-14.5)
[2016-06-30 05:26] LABS: ALT/SGPT 23 U/l (0-40); Albumin 3.2 gm/dL (3.2-5.2); Albumin/Globulin Ratio 1.3 (1.0-2.3); Alkaline Phosphatase 64 U/L (39-117); Bilirubin,Direct < 0.2 mg/dL (0.0-0.3); Blood Urea Nitrogen 22 mg/dl (8-23); Creatine Kinase 541 IU/L (24-170); Gamma Glutamyl Transpeptidase 21 U/L (5-36); Magnesium 1.9 mg/dL (1.6-2.5); Phosphorous 3.3 mg/dL (2.7-4.5); Uric Acid 3.8 mg/dL (2.5-8.0)
[2016-06-30] MEDS: INSULIN LISPRO 1 UNIT/0.01 ML UNIT SQ SCH ×4 (07:30→20:13)
[2016-06-30] MEDS: COLLAGENASE TOP OINT TUBE 30GM TOPICAL SCH (08:54)
[2016-06-30] MEDS: BACITRACIN TOPICAL OINT 15 GM TUBE TOPICAL SCH (08:54)
[2016-06-30] MEDS: FAMOTIDINE/PF 20 MG/2 ML VIAL IV SCH ×2 (08:55→20:13)
[2016-06-30] MEDS: BISACODYL 5 MG TABLET PO PRN (08:55)
[2016-06-30] MEDS: DILTIAZEM 180 MG CAP.XL.24H PO SCH (08:55)
[2016-06-30] MEDS: VANCOMYCIN 1,500 MG in 0.9 % SODIUM CHLORIDE 500 ML IV SCH (11:00)
--- NOTE | 2016-06-30 12:41 | Internal Med Progress Note ---
Medical - PN: Subj Patient information: Note initiated : 06/30/16 at 12:38 pm Service Date, if different from initiated Date: [] Patient: Iris Singh 81 y/o F admitted on 06/28/16 for Weakness. Chief Complaint: [] Interval history: The patient seen examined, no acute ovenright events but the patient had a rough night, difficulty to transfer from commode to bed. The patient this AM was sitting comfortably in the chair, denies any acute complaints. She is aoox3 She denies any acute deficits. Seen by PT today. Pertinent ROS: Denies headache, dizziness Denies chest pain, palpitations Denies cough or shortness of breath Denies abdominal pain, nausea or vomiting. - Constitutional Vitals: Vital Signs Temp Pulse Resp BP Pulse Ox 99.0 F 76 17 158/76 95 06/30/16 04:00 06/30/16 06:58 06/30/16 06:58 06/30/16 04:00 06/30/16 06:58 Period Temp Pulse Resp BP Sys/Jhaveri Pulse Ox Last 24 Hr 98.5 F-99.4 F 73-83 17-20 131-158/70-76 95-97 Intake and Output 06/29/16 06/30/16 06/30/16 21:59 05:59 13:59 Intake Total 1050 / 1050 1150 / 1150 500 / 500 Output Total 300 / 300 375 / 375 Balance 750 / 750 775 / 775 500 / 500 Weight 219 lb 8 oz Intake & Output: Intake & Output 06/29/16 06/30/16 06/30/16 21:59 05:59 13:59 Intake Total 1050 / 1050 1150 / 1150 500 / 500 Output Total 300 / 300 375 / 375 Balance 750 / 750 775 / 775 500 / 500 Weight 219 lb 8 oz Intake: IV 1050 / 1050 1100 / 1100 500 / 500 Sodium Chloride 0.9% 1, 1000 / 1000 000 ml @ 100 mls/hr IV . Q10H [facility] Rx#:[id number] Dextrose 5% in Water 50 50 / 50 100 / 100 ml @ 100 mls/hr IV Q6 [facility] with Zosyn 3.375 gm Rx#: [id number] Sodium Chloride 0.9% 500 500 / 500 ml @ 333.3 mls/hr IV Q24H [facility] with Vancomycin 1, 500 mg Rx#:[id number] Oral 50 / 50 Output: Urine Catheter Amount 300 / 300 375 / 375 Other: # Bowel Movements 0 Exam: Constitutional; Afebrile, cooperative, alert, not in distress. Eyes- No icterus, Pupils equal, reactive, No periorbital swelling Ears- Ext ear normal, hearing normal to conversation. Neck- Midline trachea, supple Respiratory system: Air Entry equal on both sides, No crackles or wheezing, no rhonchi. CVS- , S1,S2 heard, no gallop, no rub. Abdomen- Soft nontender abdomen, no organomegaly, no tenderness, no guarding or rigidity, DENTURES LAB TECHNICIAN- AOOx3, moving all extremities, no focal deficit noted. Generalized weakness present. Medical - PN: Obj Da - Labs CBC & Chem 7: 06/30/16 03:35 06/30/16 03:35 Labs: Abnormal Lab Results 06/30/16 06/30/16 06/30/16 03:35 03:35 03:35 RDW 15.4 H PT 26.5 H INR 2.3 H Chloride 111 H Carbon Dioxide 20 L Creatinine 1.3 H Glucose 136 H Hemoglobin A1c Calcium 8.1 L AST Lactate Dehydrogenase 258 H Total Creatine Kinase 541 H Total Protein 5.7 L Albumin Triglycerides 06/29/16 06/29/16 06/29/16 03:52 03:51 03:51 RDW PT 24.9 H INR 2.2 H Chloride Carbon Dioxide Creatinine Glucose Hemoglobin A1c 8.6 H Calcium AST Lactate Dehydrogenase Total Creatine Kinase 1096 H Total Protein Albumin Triglycerides 06/29/16 06/29/16 03:51 03:51 RDW 15.0 H PT INR Chloride 109 H Carbon Dioxide 20 L Creatinine Glucose 127 H Hemoglobin A1c Calcium 7.7 L AST 38 H Lactate Dehydrogenase 294 H Total Creatine Kinase Total Protein 5.6 L Albumin 2.9 L Triglycerides 181 H Meds: Medications Acetaminophen (Tylenol) 650 mg PO Q6HP PRN PRN Reason: PAIN/FEVER > 101 Acetaminophen/Hydrocodone Bitart ([place] 5/325mg) 1 tab PO Q4HP PRN PRN Reason: Pain Last Admin: 06/29/16 20:37 Dose: 1 tab Bacitracin (Bacitracin Topical Oint) 1 dose TOPICAL DAILY [facility] Last Admin: 06/30/16 08:54 Dose: 1 gm Bisacodyl (Dulcolax) 10 mg PO DAILYP PRN PRN Reason: Constipation Last Admin: 06/30/16 08:55 Dose: 10 mg Bisacodyl (Dulcolax) 10 mg UT Q3DP PRN PRN Reason: Constipation Collagenase (Santyl Top Oint) 1 dose TOPICAL DAILY [facility] Last Admin: 06/30/16 08:54 Dose: 1 gm Dextrose (Dextrose 50%) 0 ml IV UD PRN PRN Reason: Hypoglycemia Diagnostic Test (Pha) (Accu-Chek) 1 each FS ACHS [facility] Last Admin: 06/30/16 08:37 Dose: 1 each Diltiazem HCl (Cardizem Cd) 180 mg PO DAILY [facility] Last Admin: 06/30/16 08:55 Dose: 180 mg Ergocalciferol (Drisdol) 100,000 unit PO We@0900 [facility] Famotidine (Pepcid) 20 mg IV Q12 [facility] Last Admin: 06/30/16 08:55 Dose: 20 mg Sodium Chloride (Sodium Chloride 0.9%) 1,000 mls @ 100 mls/hr IV .Q10H [facility] Last Admin: 06/30/16 04:34 Dose: Not Given Piperacillin Sod/Tazobactam (Sod 3.375 gm/ Dextrose) 50 mls @ 100 mls/hr IV Q6 [facility] Last Infusion: 06/30/16 05:57 Dose: Infused Vancomycin HCl 1,500 mg/ (Sodium Chloride) 500 mls @ 333.3 mls/hr IV Q24H [facility] Last Infusion: 06/30/16 08:47 Dose: Infused Insulin Human Lispro (Humalog) 0 unit SQ [facility] PRN Reason: Protocol Last Admin: 06/29/16 20:02 Dose: 1 unit Naloxone HCl (Narcan) 0.1 mg IV Q2MIN PRN PRN Reason: Opiate Reversal Ondansetron HCl (Zofran) 4 mg IV Q4HP PRN PRN Reason: Nausea And Vomiting Simvastatin (Zocor) 20 mg PO HS [facility] Last Admin: 06/29/16 20:00 Dose: 20 mg Sodium Biphosphate/Sodium Phosphate (Fleets Adult) 1 dose [place] Q3DP PRN PRN Reason: Constipation Warfarin Sodium (Coumadin) 3 mg PO DAILY@1400 [facility] Last Admin: 06/29/16 16:49 Dose: 3 mg Medical - PN: A/P - Time Spent With Patient Total time spent is greater than 50% in coordination of care (as documented) at patient's floor/unit and/or counseling patient: (1) TIA (transient ischemic attack) Status: Acute Assessment and plan: Not sure if patient had TIA, CT head is negative, MRI not done, patient reports being back to he baseline. Echo neg, carotid duplex neg. Current Visit: Yes (2) Diabetes mellitus Status: Acute Assessment and plan: FS ok, on sliding scale insulin monitor same for now. adjust insulin if needed. Current Visit: Yes (3) Cellulitis Status: Acute Assessment and plan: on the right arm, on IV vancomycin zosyn continue same for now monitor, erythema was much improved today. Current Visit: Yes (4) Rhabdomyolysis Status: Acute Assessment and plan: Ck improved to 500's now IV fluids ongoing Current Visit: Yes (5) Renal failure Status: Acute Assessment and plan: creat worsening again Creat now is 1.3, etiology>? CK is trending down, pt seems to have dark urine, but passed 670ml yesterday, positive balanace, Continue IV fluids, If creat worsens, or urine output drops, consider USG kidneys, consider Antibiotic induced renal dysfunction. Current Visit: Yes - Narrative A/P Narrative: DVT on coumadin with therapeutic INR Dispo: pt wants to go home, unfortunately the patient is too weak to go home, I have tried to convince her to consider SNF Medical - PN: Qual - VTE Deep Vein Thrombosis/Pulmonary Embolism Present on Admission: No
[2016-06-30] MEDS: WARFARIN 3 MG TABLET PO SCH (15:57)
[2016-06-30] MEDS ORDERED: FUROSEMIDE 20 MG/2 ML VIAL IV ONE (16:46)
[2016-06-30] MEDS ORDERED: 0.9 % SODIUM CHLORIDE 1,000 ML IV SCH (16:48)
[2016-06-30 18:32] LABS: Appearance,Urine HAZY; Bacteria,Urine 0 /hpf (0); Bilirubin,Urine NEG (NEG); Color,Urine STRAW; Glucose,Urine (UA) >=500 mg/dL (NEG); Leukocyte Esterase,Urine NEG /uL (NEG); Mucus,Urine FEW /hpf (0); Nitrate,Urine NEG (NEG); Protein,Urine NEG (NEG); Specific Gravity,Urine 1.012 (1.000-1.035); Uric Acid Crystals,Urine FEW /hpf (0); Urine Blood >=1.0 mg/dL (<0.03); Urine RBC > 182 /hpf (0-1); Urine Squamous Epithelial Cell 0 /hpf (0-4); Urine WBC 0 /hpf (0-4); Urobilinogen,Urine NEG (NEG)
[2016-06-30] MEDS: SIMVASTATIN 20 MG TABLET PO SCH (20:13)
[2016-06-30] MEDS: cloNIDine HCL 0.1 MG TABLET PO PRN (20:41)
[2016-07-01] MEDS: PIPERACILLIN SODIUM/TAZOBACTAM 3.375 GM in DEXTROSE 5% IN WATER 50 ML IV SCH ×2 (00:16→05:24)
[2016-07-01] MEDS: cloNIDine HCL 0.1 MG TABLET PO PRN (04:00)
[2016-07-01 05:36] LABS: Basophils # (Auto) 0 K/mcL (0.0-0.3); Basophils % (Auto) 0.6 % (0.0-2.0); Eosinophils # (Auto) 0.2 K/mcL (0.0-0.7); Eosinophils % (Auto) 2.6 % (0.0-7.0); Granulocytes % (Auto) 65.6 % (38.0-78.0); Lymphocytes # (Auto) 1.8 K/mcL (1.5-4.8); Mean Cell Volume 89.7 fL (80.0-100.0); Mean Corpuscular HGB Conc 32.1 g/dL (31.0-36.0); Mean Corpuscular Hemoglobin 28.8 pg (26.0-34.0); Monocytes # (Auto) 0.4 K/mcL (0.1-0.9); Monocytes % (Auto) 6.2 % (1.0-9.0); Platelet Count 220 K/mcL (140-440); RBC 4.33 M/mcL (4.00-5.20); Red Cell Distribution Width 15.2 % (11.5-14.5)
[2016-07-01 06:01] LABS: ALT/SGPT 22 U/l (0-40); Albumin 3.3 gm/dL (3.2-5.2); Albumin/Globulin Ratio 1.2 (1.0-2.3); Alkaline Phosphatase 65 U/L (39-117); Bilirubin,Direct < 0.2 mg/dL (0.0-0.3); Blood Urea Nitrogen 17 mg/dl (8-23); Gamma Glutamyl Transpeptidase 24 U/L (5-36); Magnesium 1.7 mg/dL (1.6-2.5); Phosphorous 3.2 mg/dL (2.7-4.5)
[2016-07-01] MEDS: FAMOTIDINE/PF 20 MG/2 ML VIAL IV SCH (09:34)
[2016-07-01] MEDS: DILTIAZEM 180 MG CAP.XL.24H PO SCH (09:34)
[2016-07-01] MEDS: INSULIN LISPRO 1 UNIT/0.01 ML UNIT SQ SCH (09:35)
[2016-07-01] MEDS: COLLAGENASE TOP OINT TUBE 30GM TOPICAL SCH (09:36)
[2016-07-01] MEDS: BACITRACIN TOPICAL OINT 15 GM TUBE TOPICAL SCH (09:36)
--- NOTE | 2016-07-01 10:52 | Discharge Summary ---
Medical - DS: Prov Patient information: Note initiated : 07/01/16 at 10:48 am Service Date, if different from initiated Date: [] Patient: Iris Singh 81 y/o F admitted on 06/28/16 for Weakness/Dehydration, Elbow Pain. Chief Complaint: [] Date of admission: 06/28/16 13:20 Discharge date: 07/01/16 Primary care physician: [dr. Nelson Coyle] Admitting clinician: Radha Campbell Attending physician on discharge: Allie Lilly Medical - DS: Meds - Discharge Medications Prescriptions: Atorvastatin [Lipitor] 10 mg PO HS #1 tablet Famotidine 10 mg PO DAILY #1 tablet HYDROcodone/APAP 5/325MG [[place] 5/325Mg] 1 tab PO Q4HP PRN #30 tablet PRN Reason: Pain Piperacillin Sodium/Tazobactam [Zosyn] 3.375 gm IV Q6 #16 vial glipiZIDE [Glucotrol] 5 mg PO DAILY #1 tablet Active and Home Medications: Home Medications Azithromycin [Zithromax] 250 mg PO DAILY #4 tablet 06/27/16 [Rx Last Taken Unknown] Diltiazem HCl [Diltiazem 24Hr Cd] 180 mg PO DAILY 06/28/16 [History Confirmed Last Taken 06/26/16] Ergocalciferol (Vitamin D2) [Vitamin D2] 100,000 unit PO WEEKLY 06/28/16 [ History Confirmed 06/28/16 Last Taken 06/26/16] HYDROcodone/APAP 5/325MG [[place] 5/325Mg] 1 tab PO Q4-6HP PRN 06/28/16 [History Confirmed 06/28/16 Last Taken 06/26/16] Simvastatin [Zocor] 20 mg PO QHS 06/28/16 [History Confirmed 06/28/16 Last Taken 06/26/16] Warfarin [Coumadin] 3 mg PO DAILY 06/28/16 [History Confirmed 06/28/16 Last Taken 06/26/16] glipiZIDE [Glucotrol] 15 mg PO DAILY 06/28/16 [History Confirmed 06/28/16 Last Taken 06/26/16] Active Medications Acetaminophen (Tylenol) 650 mg PO Q6HP PRN PRN Reason: PAIN/FEVER > 101 Acetaminophen/Hydrocodone Bitart ([place] 5/325mg) 1 tab PO Q4HP PRN PRN Reason: Pain Last Admin: 06/29/16 20:37 Dose: 1 tab Bacitracin (Bacitracin Topical Oint) 1 dose TOPICAL DAILY [facility] Last Admin: 07/01/16 09:36 Dose: 15 gm Bisacodyl (Dulcolax) 10 mg PO DAILYP PRN PRN Reason: Constipation Last Admin: 06/30/16 08:55 Dose: 10 mg Bisacodyl (Dulcolax) 10 mg [place] Q3DP PRN PRN Reason: Constipation Clonidine HCl ([place]apres) 0.1 mg PO Q4HP PRN PRN Reason: Hypertension Last Admin: 07/01/16 04:00 Dose: 0.1 mg Collagenase (Santyl Top Oint) 1 dose TOPICAL DAILY [facility] Last Admin: 07/01/16 09:36 Dose: 15 gm Dextrose (Dextrose 50%) 0 ml IV UD PRN PRN Reason: Hypoglycemia Diagnostic Test (Pha) (Accu-Chek) 1 each FS ACHS [facility] Last Admin: 07/01/16 09:35 Dose: 1 each Diltiazem HCl (Cardizem Cd) 180 mg PO DAILY [facility] Last Admin: 07/01/16 09:34 Dose: 180 mg Ergocalciferol (Drisdol) 100,000 unit PO We@0900 [facility] Famotidine (Pepcid) 20 mg IV Q12 [facility] Last Admin: 07/01/16 09:34 Dose: 20 mg Piperacillin Sod/Tazobactam (Sod 3.375 gm/ Dextrose) 50 mls @ 100 mls/hr IV Q6 [facility] Last Infusion: 07/01/16 06:19 Dose: Infused Vancomycin HCl 1,500 mg/ (Sodium Chloride) 500 mls @ 333.3 mls/hr IV Q24H [facility] Last Infusion: 06/30/16 14:00 Dose: Infused Sodium Chloride (Sodium Chloride 0.9%) 1,000 mls @ 50 mls/hr IV .Q20H [facility] Last Admin: 06/30/16 17:21 Dose: 50 mls/hr Insulin Human Lispro (Humalog) 0 unit SQ ACHS [facility] PRN Reason: Protocol Last Admin: 07/01/16 09:35 Dose: 1 unit Naloxone HCl (Narcan) 0.1 mg IV Q2MIN PRN PRN Reason: Opiate Reversal Ondansetron HCl (Zofran) 4 mg IV Q4HP PRN PRN Reason: Nausea And Vomiting Simvastatin (Zocor) 20 mg PO HS [facility] Last Admin: 06/30/16 20:13 Dose: 20 mg Sodium Biphosphate/Sodium Phosphate (Fleets Adult) 1 dose [place] Q3DP PRN PRN Reason: Constipation Warfarin Sodium (Coumadin) 3 mg PO DAILY@1400 [facility] Last Admin: 06/30/16 15:57 Dose: 3 mg Medical - DS: Hosp Hospital course: Mrs. Singh is a 81 year old female he was brought to emergency room after being found down. She apparently had had one or 2 falls at home, and then laid on the ground for at least 12 hours. The patient could not really recall why she fell. 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 She did have acute renal decline as well as acute rhabdomyolysis. She was admitted to the ICU, and started on aggressive IV fluids, with close observation. She was started on IV Zosyn and vancomycin to cover her cellulitis. Renal function was monitored closely.diabetes was managed with sliding scale insulin, and then oral glipizide was added back yesterday. Metformin will be added back today.renal function will need to be monitored closely. she has been working with physical therapy, but does have decreased strength and energy level. She is a high fall risk. today, the patient sayssliz is still feeling tired, and feels that her balance is poor. She continues to feel soreon all the areas that she banged up when she fell. She is interested in returning home, but seems to understand that she is a high fall risk at this time She otherwise denies fever or chills, chest pain or shortness of breath, abdominal pain, nausea or vomiting or diarrhea She still has her Garcia catheter and this morning. On exam, she is a well-developed elderly female, who appears quite fatigued. neck shows no obvious JVD or lymphadenopathy. cardiac exam shows regular rate and rhythm. lungs are essentially clear on the left, but with a few crackles at the right base. Abdomen is protuberant, but soft and nontender. Bowel sounds are active. Extremities: Show no significant edema. Skin:The patient does have abrasions about her knee and elbow areas. These are being treated as per wound care Neurologic exam: Is grossly nonfocal. assessment and plan: 31. Fall, of uncertain etiology. The patient has had past history of TIAs and stroke but it does not appear that she has had an acute stroke. Echocardiogram did show LVH, but otherwise looked reasonable. Carotid Doppler study was negative. CT scan did show lots of old findings. -The patient remains a high fall risk, and requires physical therapy to decrease fall risk. #2. Type 2 diabetes. -Accu-Cheks are ranging from 150-200. The patient will resume her metformin, and add back low-dose glipizide. This should be monitored closely until things are stable. #3. Right arm cellulitis. This appears improved I do not think we have to continue the vancomycin at this point, and which is complete her 7 day course of Zosyn. Continue to monitor clinically. #4. Rhabdomyolysis with acute renal failure. CPK continues to decline, and urine output is reasonable. Oral fluid intake is improved as well, and IV fluids can be discontinued at this time. -discontinue Garcia catheter. #5. Labile blood pressure. -I suspect this is at least partly due to discomfort and to the IV normal saline. When necessary clonidine was ordered. She was given 1 dose of Lasix last night, and fluids will be discontinued today. #6. DVT prophylaxis: The patient does continue on Coumadin with a therapeutic INR. #7. CODE STATUS: The patient does appear to remain a full code. 38. Status: Because of the patient's severity of illness and complexity of her problems,status was changed from observation back to inpatient. Approximately 40 minutes has been spent so far today, reviewing the patient's record and test results, reviewing her case with 13 and nursing staff, interviewing and examining the patient, and writing orders. Discharge diagnosis: ARF, rhabdomyolysis, cellulitis R arm, fall - Time Spent with Patient Total time spent providing and/or coordinating discharge services: Medical - DS: Exam - Constitutional Vitals: Vital Signs Temp Pulse Resp BP Pulse Ox 07/01/16 08:00 98.3 F 74 18 157/94 94 07/01/16 04:00 97.8 F 70 24 172/80 94 07/01/16 00:00 98.3 F 68 24 141/69 95 06/30/16 20:00 98.5 F 73 20 179/74 95 06/30/16 16:00 98.0 F 70 19 187/98 95 06/30/16 12:00 98.4 F 71 17 183/95 95 Intake and Output 06/30/16 07/01/16 07/01/16 21:59 05:59 13:59 Intake Total 2210 / 2210 70 / 70 50 / 50 Output Total 2325 / 2325 1825 / 1825 Balance -115 / -115 -1755 / -1755 50 / 50 Intake: IV 1690 / 1690 50 / 50 50 / 50 Sodium Chloride 0.9% 1, 1140 / 1140 000 ml @ 100 mls/hr IV . Q10H [facility] Rx#:[id number] Dextrose 5% in Water 50 50 / 50 50 / 50 50 / 50 ml @ 100 mls/hr IV Q6 [facility] with Zosyn 3.375 gm Rx#: [id number] Sodium Chloride 0.9% 500 500 / 500 ml @ 333.3 mls/hr IV Q24H [facility] with Vancomycin 1, 500 mg Rx#:[id number] Oral 520 / 520 20 / 20 Output: Urine Catheter Amount 2325 / 2325 1825 / 1825 Other: Meal Dinner Percent of Meal Consumed 100% Feeding Ability Assist with Tray Set Up Weight 220 lb 6.4 oz Medical - DS: Data Labs on day of discharge: Labs from last 24 hours 07/01/16 07/01/16 07/01/16 10:00 10:00 03:45 WBC RBC Hgb Hct MCV MCH MCHC RDW Plt Count MPV Gran % Lymph % (Auto) [place] % (Auto) Eos % (Auto) Baso % (Auto) Gran # Lymph # [place] # Eos # Baso # PT Pending INR Pending Sodium Potassium Chloride Carbon Dioxide Anion Gap BUN Creatinine GFR Calculation Glucose Uric Acid Calcium Phosphorus Magnesium Total Bilirubin Direct Bilirubin GGT AST ALT Alkaline Phosphatase Lactate Dehydrogenase Total Creatine Kinase 438 H Total Protein Albumin Globulin Albumin/Globulin Ratio Triglycerides Urine Color Urine Appearance Urine pH Ur Specific [place] Urine Protein Urine Glucose (UA) Urine Ketones Urine Occult Blood Urine Nitrate Urine Bilirubin Urine Urobilinogen Ur Leukocyte Esterase Urine RBC Urine WBC Ur Squamous Epith Cells Uric Acid Crystals Urine Bacteria Urine Mucus Ur Culture Indicated? Vancomycin Trough Pending 07/01/16 07/01/16 06/30/16 03:45 03:45 17:42 WBC 7.2 RBC 4.33 Hgb 12.5 Hct 38.9 MCV 89.7 MCH 28.8 MCHC 32.1 RDW 15.2 H Plt Count 220 MPV 8.7 Gran % 65.6 Lymph % (Auto) 25.0 [place] % (Auto) 6.2 Eos % (Auto) 2.6 Baso % (Auto) 0.6 Gran # 4.7 Lymph # 1.8 [place] # 0.4 Eos # 0.2 Baso # 0 PT INR Sodium 142 Potassium 4.1 Chloride 104 Carbon Dioxide 20 L Anion Gap 18.0 H BUN 17 Creatinine 1.2 H GFR Calculation 42 Glucose 171 H Uric Acid 3.0 Calcium 8.6 Phosphorus 3.2 Magnesium 1.7 Total Bilirubin 0.5 Direct Bilirubin < 0.2 GGT 24 AST 24 ALT 22 Alkaline Phosphatase 65 Lactate Dehydrogenase 316 H Total Creatine Kinase Total Protein 6.1 Albumin 3.3 Globulin 2.8 Albumin/Globulin Ratio 1.2 Triglycerides 170 H Urine Color Straw Urine Appearance Hazy Urine pH 5.0 Ur Specific [place] 1.012 Urine Protein Neg Urine Glucose (UA) >=500 A Urine Ketones Neg Urine Occult Blood >=1.0 A Urine Nitrate Neg Urine Bilirubin Neg Urine Urobilinogen Neg Ur Leukocyte Esterase Neg Urine RBC > 182 H Urine WBC 0 Ur Squamous Epith Cells 0 Uric Acid Crystals Few A Urine Bacteria 0 Urine Mucus Few Ur Culture Indicated? No Vancomycin Trough chest x-ray from June 29, 2016: Shows mild bibasilar airspace disease, likely atelectasis. EKG from June 27, 2016: Shows sinus rhythm at a rate of [address]-T wave changes. chocardiogram from June 29, 2016:Shows ejection fraction of 70%. There is also noted aortic root sclerosis, and aortic stenosis, probably mild. There is concentric LVH and mild left atrial enlargement. There is possible posterior pericardiac thickening x-rays of the hips and pelvis show no fracture. carotid Doppler showswidely patent carotid arteries with mild calcific and fibrofatty plaque in both carotid bifurcations. Medical - DS: A/P - Patient/Caregiver Discharge Instructions Activity: as per physical therapy Diet: Cardiac Additional Instructions: 31. Push oral hydration at least for the next several days. Check follow-up labs in a day or so, to recheck renal function #2. Monitor before meals and at bedtime Accu-Cheks and adjust diabetes medications as needed. #3. Continue current wound care for her various abrasions caused by her fall. #4. Monitor blood pressure at least twice a day, as this has been a bit labile. #5. For her history of strokes, she is maintained on Coumadin, and INR will need to be monitored. Prescriptions: Atorvastatin [Lipitor] 10 mg PO HS #1 tablet Famotidine 10 mg PO DAILY #1 tablet HYDROcodone/APAP 5/325MG [[place] 5/325Mg] 1 tab PO Q4HP PRN #30 tablet PRN Reason: Pain Piperacillin Sodium/Tazobactam [Zosyn] 3.375 gm IV Q6 #16 vial glipiZIDE [Glucotrol] 5 mg PO DAILY #1 tablet Other Amb Orders: OT Discharge Order Location: Determined By Patient Physical Therapy at Discharge - General Location: Determined By Patient - Follow up Plan Follow up with: Nelson Coyle PA-C [Primary Care Provider] - Disposition: Xfer SNF Prognosis: Fair Rehab Potential: Fair I certify that the patient requires SNF services: Yes Overall status at discharge: patient is progressing back to baseline Medical - DS: Qual - VTE Deep Vein Thrombosis/Pulmonary Embolism Present on Admission: No
[2016-07-01] MEDS: VANCOMYCIN 1,500 MG in 0.9 % SODIUM CHLORIDE 500 ML IV SCH (11:50)
[2016-07-03] MEDS ORDERED: ERGOCALCIFEROL (VITAMIN D2) 50,000 UNIT CAPSULE PO SCH (09:00)
== END 2016-07-01 13:05 | DRG 69 ==
LOC: ED 19:33 → ICU 19:33 → SUATTDRO 06-28 13:20 → OBSVTOIN 06-28 13:20
PROVIDERS: ADMIT Internal Medicine; ATTEND Internal Medicine